=== PATIENT | male | born 1960 | race Caucasian/White ===

== ENCOUNTER 2017-12-17 10:28 | Emergency (ER) | payer MEDICARE, MEDICAID ==
[~2017-12-17] VITALS: Ht 190.5 cm; Wt 98.0 kg
[2017-12-17 10:30] VITALS: BP 131/74
[2017-12-17] MEDS ORDERED: AMOX500C2 PO (10:58)
== END 2017-12-17 11:19 | disposition home or self-care (01) ==
LOC: ER 10:29
DX: J02.9 Acute pharyngitis, unspecified (principal); Z88.8 Allergy status to other drugs, medicaments and biological substances
CPT/HCPCS: 87081; 87880; 99284

== ENCOUNTER 2024-09-20 15:58 | Emergency (ER) | payer MEDICARE, MEDICAID ==
[~2024-09-20] VITALS: Ht 190.5 cm; Wt 95.0 kg
[~2024-09-20 15:58] MED LIST: ALBU18HF2 PO; AMLO-708 PO; ATOR20TA66 PO; BUDE10.22 PO; FLO0.4C; FLUT1BLS24; LISI40TA13 PO; PANT40TA54 PO; TRAZ-251 PO; UMEC62.5 PO
[2024-09-20 16:53] LABS: BASOPHILS # (AUTO) 0.1 X10'3 (0-0.2); EOSINOPHILS # (AUTO) 0.3 X10'3 (0-0.9); EOSINOPHILS % (AUTO) 3.8 % (0-6); HEMATOCRIT 44.8 % (42.0-52.0); HEMOGLOBIN 15.1 g/dl (14.0-17.9); LYMPHOCYTES % (AUTO) 27.8 % (21-51); MEAN CORPUSCULAR HEMOGLOBIN 29.6 PG (27.0-31.0); MEAN CORPUSCULAR HGB CONC 33.7 g/dL (33.0-36.5); MEAN CORPUSCULAR VOLUME 87.7 FL (78-98); MEAN PLATELET VOLUME 8.8 FL (7.4-10.4); MONOCYTES # (AUTO) 0.8 X10'3 (0-0.9); MONOCYTES % (AUTO) 10.8 % (2-12); NEUTROPHILS # (AUTO) 4.1 X10'3 (1.8-7.7); NEUTROPHILS % (AUTO) 56.6 % (42-75); PLATELET COUNT 225 X10'3 (140-440); RED BLOOD COUNT 5.11 X10'6 (4.70-6.10); RED CELL DISTRIBUTION WIDTH 13.4 % (11.5-14.5); WHITE BLOOD COUNT 7.2 X10'3 (4.5-11.0)
[2024-09-20 17:06] LABS: ALANINE AMINOTRANSFERASE 34 U/L (12-78); ALBUMIN 3.9 G/DL (3.4-5.0); ALKALINE PHOSPHATASE 125 IU/L (46-116); ANION GAP 9 (8-16); ASPARTATE AMINO TRANSFERASE 21 U/L (10-37); BILIRUBIN,TOTAL 0.4 MG/DL (0.1-1.0); BLOOD UREA NITROGEN 16 MG/DL (7-18); CALCIUM 9.1 MG/DL (8.5-10.1); CHLORIDE 101 MMOL/L (99-107); GLUCOSE 105 MG/DL (70-104); POTASSIUM 4.1 MMOL/L (3.5-5.1); SODIUM 136 MMOL/L (135-145); TOTAL PROTEIN 7.9 G/DL (6.4-8.2); eCRCL 87 ML/MIN; eGFR 75 ML/MIN
[2024-09-20 17:14] LABS: PRO BRAIN NATRIURETIC PEPTIDE < 30 PG/ML (0-125)
[2024-09-20 19:08] VITALS: BP 146/77; PULSE 62; RESP 15; TEMP 98.3; O2SAT 97
== END 2024-09-20 19:10 | disposition home or self-care (01) ==
LOC: ER 15:58
DX: R07.89 Other chest pain (principal); R55 Syncope and collapse; Z88.8 Allergy status to other drugs, medicaments and biological substances
CPT/HCPCS: 36415; 71045; 80053; 83880; 84484; 85025; 93005; 99285

== ENCOUNTER 2025-07-28 20:01 | Emergency (ER) | payer MEDICARE, MEDICAID ==
[~2025-07-28] VITALS: Ht 188 cm; Wt 87.3 kg
[~2025-07-28 20:01] MED LIST changes: -FLO0.4C; -LISI40TA13 PO; +LISI40TA20 PO; +TAMS-55 PO
--- NOTE | 2025-07-28 20:42 | Physician Documentation ---
History of Present Illness ~ Chief Complaint: Wrist pain Stated Complaint: WRIST FRACTURE Time Seen by MD: 20:39 Primary Medical Doctor: KANG DALY [facility] This is a 65-year-old male who presents with left wrist pain and swelling following a mechanical ground level trip and fall, patient additionally reports an abrasion to the right wrist. Patient reports no numbness to fingers of left hand Tetanus within 5 years: Yes Medication Reconciliation Allergies: Coded Allergies: bupropion (Verified Allergy, Unknown, 02/19/24) Scheduled Amlodipine Besylate (Amlodipine Besylate), 1 TAB PO DAILY, (Reported) Atorvastatin Calcium (Atorvastatin Calcium), 1 TAB PO HS, (Reported) Fluticasone/Vilanterol (Fluticasone-Vilanterol 100-25), DAILY, (Reported) Ibuprofen (Ibuprofen), 1 TAB PO Q8H Lisinopril* (Lisinopril*), 1 TAB PO HS, (Reported) Pantoprazole Sodium (Pantoprazole Sodium), 1 TAB PO WL, (Reported) Tamsulosin Hcl* (Flomax*), DAILY, (Reported) Trazodone HCl (Trazodone HCl), 1-2 TAB PO HS, (Reported) Umeclidinium [place] (Incruse Ellipta), 1 PUFFS PO DAILY, (Reported) Scheduled PRN Albuterol Sulfate (Ventolin Hfa), 2 PUFFS PO Q2H PRN for SOB or wheezing, (Reported) Miscellaneous Medications Budesonide/Formoterol Fumarate (Symbicort 80-4.5 Mcg Inhaler), 2 PUFFS PO, (Reported) Past Medical History Past Medical History: No Pertinent History Past Surgical History: noncontributory Patient History: FH: cardiovascular disease GRANDFATHER OR GRANDMOTHER, Name: Great Grandfather FH: dementia MOTHER FH: heart attack FATHER Lives with: Spouse Lives In: Home Review of Systems ROS As stated above in the HPI, otherwise all systems are reviewed and negative. Physical Exam Vital Signs: Temperature: 98.3, Heart Rate: 72, Respiratory Rate: 16, BP: 135/80, Pulse Oximetry: 99, Weight: 87.320 Oxygen Flow Rate: 0 Physical Exam VITALS: Reviewed and as above. GENERAL: Alert, nontoxic appearing, no apparent distress. HEENT: No injuries to head or face RESPIRATORY: No increased work of breathing, no respiratory distress, speaking in full clear sentences MUSCULOSKELETAL: Left distal forearm swollen without significant deformity, range of motion of fingers distal to the injury intact, sensation intact, brisk capillary refill distal to injury, range of motion intact to elbow and shoulder, no tenderness to palpation to elbow or shoulder SKIN: Abrasion to right forearm, no ecchymosis to left forearm Progress Results/Orders Results/Orders Orders - SHEILA MAJORP Forearm,Incl.One Joint (07/28/25 21:29) Completed Orders - SHEILA MAJOR ETHNOARCHAEOLOGY PROFESSOR Hydrocodone/Apap 5/325mg Tab ([place]asper 5/32 (07/28/25 20:55) Ketorolac Trometh 15mg/Ml Vial (Toradol (07/28/25 20:57) Forearm,Incl.One Joint (07/28/25 21:29) Vital Signs 07/28/25 07/28/25 20:17 22:03 Temp 98.3 98.6 Pulse 72 69 Resp 16 18 B/P (MAP) 135/80 130/72 Pulse Ox 99 99 O2 Flow Rate 0 EKG/XRAY/CT/US/VASC/MRI Bone/Soft Tissue X-Ray (Ext.) #1: Additional Comment Exam: WRIST, COMPLETE (3VW MIN) CLINICAL INDICATION: WRIST PAIN TECHNIQUE: 3 radiographic views of the left wrist were obtained. Comparison: None FINDINGS/IMPRESSION: There is acute comminuted mildly displaced fracture of the distal radius with intra-articular extension. 2 mm linear density adjacent to the triquetrum on the oblique view which may represent a small avulsed bony fragment. There is associated soft tissue edema of the distal forearm and wrist. Electronically Signed by:ARMINDA WEISS DO Date & Time: 07/28/252046 Dictated by: ARMINDA WEISS DO Dictation date and time: 07/28/252046 I have reviewed and agree with the radiology report. I have reviewed and interpreted the imaging as: Comminuted fracture of the distal radius Bone/Soft Tissue X-Ray (Ext.) #2: Additional Comment Exam: FOREARM,INCL.ONE JOINT CLINICAL INDICATION: Post Reduction LEFT TECHNIQUE: DI FOREARM,INCL.ONE JOINT Comparison: DI WRIST, COMPLETE (3VW MIN) on DOS: 07/28/25 FINDINGS/IMPRESSION: : Interval placement of a splint about the left forearm Slightly impacted mildly displaced distal radius metaphysis fracture with intra- articular extension into the radiocarpal joint. Electronically Signed by:XI CARCAMO MD Date & Time: 07/28/252239 Dictated by: XI CARCAMO MD Dictation date and time: 07/28/252239 I have reviewed and agree with the radiology report. I have reviewed and interpreted the imaging as: No significant change from previous study Medical Decision Making Findings This 65-year-old male presented with left wrist pain falling a ground level trip and fall on outstretched hand, physical exam demonstrated significant swelling to the wrist and additional abrasion to the right forearm. An x-ray of the wrist was obtained which demonstrated a comminuted mildly displaced distal radius. It was reassuring the arm was neurovascularly intact. Due to comminuted nature of the fracture and the fact it was mildly displaced manual reduction was not attempted however the patient's arm was allowed to hang in traction for some time prior to splint placement to attempt some level of reduction. A splint was applied by orthopedic shoe fitter and re-evaluated following placement with the arm and hand neurovascularly intact following splint placement. Abrasion to right wrist was dressed by nursing staff. Patient was medicated for pain reporting adequate pain control, patient is to be discharged to follow up with orthopedist. Remainder of physical exam was benign with no other acute injuries found and no other injuries reported. Patient provided home care instructions, return to care precautions, and follow up instructions which he verbalized understanding of. General Diff Dx:Considerations: Include: Contusion, Fracture, Hematoma, Laceration, Neurovascular injury, Open fracture, Sprain Wrist Diff Dx:Considerations: Include: DJD, Rheumatoid, Septic, Ganglion Departure Disposition: 01 HOME / SELF CARE / HOMELESS Impression: Primary Impression: Left wrist fracture Qualified Codes: S62.102A - Fracture of unspecified carpal bone, left wrist, initial encounter for closed fracture Condition: Improved Discharge Instructions: Wrist Fracture Treated With Immobilization Additional Instructions: Please follow up with the orthopedist at the information provided in this paperwork. You may use the ibuprofen that has been prescribed, take this medication with food to avoid stomach upset, you may add Tylenol to this medication for breakthrough pain for you may return to the emergency department if you change your mind on wanting a narcotic based pain medication. Please follow up with your primary care provider in the next few days. Please return to the emergency department for any new or worsening concerning symptoms including but not limited to increasing pain or swelling to your arm, numbness or tingling in your fingers, or loss of use of your fingers. Referrals: NO PRIMARY CARE PROVIDER (PCP) ELIZ BAPTISTE MD Prescriptions Ibuprofen (Ibuprofen) 800 Mg Tablet 1 TAB PO Q8H for pain for 10 Days, #30 TAB 0 Refills Prov: SHEILA MAJOR 07/28/25 Education Educated: Patient Educated regarding: diagnosis, treatment, prognosis, need for follow up Signature Scribe Signature: No scribe Attestation: The note accurately reflects work and decisions made by me.PAULA Perkins 07/29/25 16:56 SHEILA MAJOR Jul 28, 2025 20:42
--- NOTE | 2025-07-28 20:49 | RADIOLOGY REPORT ---
CLINICAL INDICATION: WRIST PAIN TECHNIQUE: 3 radiographic views of the left wrist were obtained. Comparison: None FINDINGS/IMPRESSION: There is acute comminuted mildly displaced fracture of the distal radius with intra-articular extensi on. 2 mm linear density adjacent to the triquetrum on the oblique view which may represent a small a vulsed bony fragment. There is associated soft tissue edema of the distal forearm and wrist.
[2025-07-28] MEDS ORDERED: HYDROcodone/acetaminophen 5mg/325mg tablet PO ONE (20:55)
[2025-07-28] MEDS: ketorolac trometh 15mg/ml vial 15 MG/ML ML IM STA (21:02)
[2025-07-28] MEDS ORDERED: IBUP-1986 PO (21:27)
[2025-07-28 22:03] VITALS: BP 130/72; PULSE 69; RESP 18; TEMP 98.6; O2SAT 99
--- NOTE | 2025-07-28 22:42 | RADIOLOGY REPORT ---
CLINICAL INDICATION: Post Reduction LEFT TECHNIQUE: DI FOREARM,INCL.ONE JOINT Comparison: DI WRIST, COMPLETE (3VW MIN) on DOS: 07/28/25 FINDINGS/IMPRESSION: : Interval placement of a splint about the left forearm Slightly impacted mildly displaced distal radius metaphysis fracture with intra-articular extension i nto the radiocarpal joint.
[2025-08-04] MEDS ORDERED: FLUT1AER INH (15:39)
[2025-08-04] MEDS ORDERED: IBUP-1986 PO (15:39)
[2025-08-04] MEDS ORDERED: LISI30TA4 PO (16:48)
== END 2025-07-28 22:04 | disposition home or self-care (01) ==
LOC: ER 20:02
DX: S52.592A Other fractures of lower end of left radius, initial encounter for closed fracture (principal); Z88.8 Allergy status to other drugs, medicaments and biological substances; W19.XXXA Unspecified fall, initial encounter; Y93.89 Activity, other specified; Y92.89 Other specified places as the place of occurrence of the external cause; Y99.8 Other external cause status
CPT/HCPCS: 29125; 73090; 73110; 99284; A4565; A6449; J1885

== ENCOUNTER 2025-08-05 10:24 | Day surgery (SDC) | payer MEDICARE, MEDICAID ==
[2025-08-04 15:12] LABS: MEAN PLATELET VOLUME 8.2 FL (7.4-10.4); RED CELL DISTRIBUTION WIDTH 13.1 % (11.5-14.5)
--- NOTE | 2025-08-04 15:13 | ELECTROCARDIOGRAPH REPORT ---
[facility] Test Date: 2025-08-04 Test Time: 15:10:53 Pat Name: ELIZ WIN Department: [facility]-PRE-OP Patient ID: [facility]-[id number] Room: Gender: M Pharmacy Retail Support Specialist: : 1960 Requested By: ELIZ BAPTISTE Order Number: [id number] Reading MD: Dr. EZEKIEL Barrios Measurements Intervals [place] Rate: 64 P: 72 KS: 167 QRS: 57 QRSD: 75 T: 46 QT: 368 QTc: 380 Interpretive Statements Sinus rhythm Baseline wander in lead(s) V2 Electronically Signed On 08-04-2025 20:36:[address] EZEKIEL Barrios Please click the below link to view image of tracing.
[2025-08-04 15:29] LABS: CREATININE 1.20 MG/DL (0.60-1.10); TOTAL CARBON DIOXIDE 29.7 MMOL/L (24-32); eGFR 60 ML/MIN
[~2025-08-05] VITALS: Ht 190.5 cm; Wt 86.1 kg
[2025-08-05] VITALS (13 sets, daily range): BP systolic 121–145; BP diastolic 62–76; PULSE 63–83; RESP 8–16; TEMP 98.1; O2SAT 92–99
[2025-08-05] MEDS: ceFAZolin 2gm/dext,iso 50mL 50 ML IV ONE (05:30)
[~2025-08-05 10:24] MED LIST changes: -BUDE10.22 PO; +FLUT1AER INH; -FLUT1BLS24; +IBUP-1986 PO; +LISI30TA4 PO; -LISI40TA20 PO; +bacitracin 15gm ointment TP ONE; +vancomycin 1,000mg inj ONE
[2025-08-05] MEDS: ringers solution, lacted 1,000 ML IV SCH (11:20)
[2025-08-05] MEDS ORDERED: ringers solution, lacted 1,000 ML IV SCH (12:25)
[2025-08-05] MEDS ORDERED: ondansetron/PF 4mg/2ml inj IV PRN (12:25)
[2025-08-05] MEDS ORDERED: labetalol 20mg/4ml (5mg/ml) syringe IV PRN (12:25)
[2025-08-05] MEDS ORDERED: fentaNYL/PF 50MCG/1 ML 2ML syringe IV PRN ×2 (12:25)
[2025-08-05] MEDS ORDERED: hydrALAZINE 20mg/ml inj. IV PRN (12:25)
[2025-08-05] MEDS ORDERED: morphine 4 MG/ML inj SYRINge IV PRN (12:25)
--- NOTE | 2025-08-05 12:28 | ANESTHESIA RECORDS ---
Nerve Block Providers to CC CC: ELIZ BAPTISTE MD ~ Diagnosis: Nerve Block requested by: SAY SEGURA MD Neuraxial/Peripheral Nerve Block requested for Post-operative analgesia by Physician above DIAGNOSIS: Post-operative pain. (Body Area) Shoulder: [ ] Arm: [ ] Hand: [ ] Hip: [ ] Knee: [ ] Ankle: [ ] Foot: [ ] Leg: [ ] Abdomen: [ ] Other: [ ] Post-operative pain expected to be/is inadequately managed by oral or IV medicines. Regional anesthetic expected to facilitate rehabilitation and/or discharge from facility. Other:[ _] Procedure Performed: Axillary: Left Time out Done?: Yes Time of Time out: 12:50 Procedure Details: PROCEDURE DETAILS: Risks, benefits and alternatives explained Informed consent obtained, and patient wishes to proceed Conscious sedation with indicated monitors Patient positioned, pertinent anatomy defined, sterile technique used Needle used: [ ] 3 1/8 inch Stimuplex Ultra 22ga [x ] 4 inch Stimuplex Ultra 20ga [ ] 6 inch Stimuplex Ultra 20ga [ ] 6 inch, Quikbloc over the needle catheter set 20ga [ ] 4 inch Quikbloc over the needle catheter set 20ga [ ]Other: [ ] Loss of twitch @ [ 0.5 ]mA [x ] Single Injection [ ] Catheter Ultrasound Guidance Used: [ x] Yes [ ] No Attempts:[ ] Medicines injected: [ ]Clonidine Amt:[ ] [ ]Dexamethasone Amt:[ ] [x ]Ropivacaine Amt:[___0.5% 40 C.C ] [ ]Bupivacaine Amt:[ ] [ ]Lidocaine Amt:[ ] [ ]Exparel 1.33%:[ ] [ ]Epinephrine Amt[ ] [ ]Other: [ ] Intermittent aspiration during local anesthetic administration No symptoms of intraneural or intravenous injection Patient tolerated procedure well Comments Left Axilla is examined with Ultrasound and Axillary vessels,Brachial plexu bundles are identified. Needle is near the bundles,motor response elicited with stimulation. 30 c.c local mix is distributed. spread is noted. [place] brachialis muscle is examined with Ultrasound and Musculocutaneous nerve is identified. Needle is placed near the bumdle and positive muscle contractions noted. 10 c.c local infiltrated. Ultrasound images captured,documented. ROSHAN LOUIS MD Aug 05, 2025 12:28
[2025-08-05] MEDS ORDERED: ondansetron/PF 4mg/2ml inj ONE (12:33)
[2025-08-05] MEDS ORDERED: acetaminophen 1,000mg/100ml IV 100 ML IV ONE (12:33)
[2025-08-05] MEDS ORDERED: LIDOcaine 1%/PF 5ML 10 MG/ML VIAL ONE (12:33)
[2025-08-05] MEDS ORDERED: propofol inj 0 ML IV ONE (12:33)
[2025-08-05] MEDS ORDERED: fentaNYL/PF 50MCG/1 ML 2ML syringe ONE (12:33)
[2025-08-05] MEDS ORDERED: ROPIVAcaine 0.5% (5mg/ml) 30ml vial ONE ×2 (12:33)
[2025-08-05] MEDS ORDERED: dexamethasone sod phosphate 4mg/ml inj. ONE (12:33)
[2025-08-05] MEDS ORDERED: propofol inj 20 ML IV ONE (12:33)
[2025-08-05] MEDS ORDERED: ePHEDrine 50MG/ML INJ. ONE (13:04)
--- NOTE | 2025-08-05 15:43 | OPERATIVE REPORT ---
DATE OF SURGERY: 08/05/2025 DICTATING PHYSICIAN: Cliff Moralez MD PREOPERATIVE DIAGNOSIS: Left intraarticular distal radius fracture with some comminution. POSTOPERATIVE DIAGNOSIS: Left intraarticular distal radius fracture with some comminution. PROCEDURE: Open reduction and internal fixation with a volar plate, screws and pegs. SURGEON: Cliff Moralez MD CHEMICAL SUPERVISOR: No farm assistant. ANESTHESIOLOGIST: General anesthesia, Dr. Pugh. FINDINGS: The patient was found to have an intraarticular distal radius fracture with an unstable fracture pattern with some loss of volar inclination. DESCRIPTION OF PROCEDURE: The patient has opted for stabilization of this fracture with an open reduction and internal fixation using volar plating system. The patient understood the indications, risks, benefits, limitations, and potential complications of this procedure. I obtained informed consent and signed his extremity. He was given prophylactic antibiotics now before being taken to the operating room where he was given a general anesthetic. While on the OR table, he was prepped and draped in the usual sterile orthopedic fashion with a left upper arm tourniquet and surgical timeout was taken per protocol and the case was begun. Esmarch was used for exsanguination. The tourniquet was insufflated. Anterior radial incision was made from the wrist flexor crease extending approximately some 5 inches. Dissection was then carried down to visualize the flexor carpi radialis tendon. Dissection was then carried to the anterior compartment of the knee while mobilizing the flexor carpi radialis longus tendon ulnarly to visualize the distal radius. The pronator quadratus was released off the radial side and retracted ulnarly. The distal radius was visualized as well as the fracture. The fracture was reduced with the aid of fluoroscopic x-rays. Acceptable reduction was achieved with correction of the radial angle and reduction of the volar inclination to 0 degrees. Volar plate was now positioned in position confirming this with x-rays and distal pegs were placed into the distal row of the plate. This was used for 4 distal pegs. The plate was then used to reduce the fracture and improve the inclination approximately 10 degrees. The plate was now secured with locking screws proximally and then the second row of pegs were used for a number for added stability of the comminuted distal radius fragments. Acceptable alignment and reduction of fracture fragments was achieved in this fashion. The area was now copiously irrigated with antibiotic and antiseptic irrigation. Hemostasis was achieved throughout the case with electrocautery. Closure of the pronator quadratus was accomplished with 2-0 Vicryl getting good coverage of the plate. Meticulous care was used to protect all neurovascular structures. Closure of the subcuticular skin was accomplished with 3-0 Vicryl with interrupted and skin nicole were used for the skin closure. She was now sealed with Dermabond skin glue. Telfa dressing, 4 x 4s, sterile Sof-Rol dressing was applied. A volar splint of plaster was applied to keep the wrist in a neutral position and for postoperative pain management. Tourniquet had been released. Good distal pulses and capillary refill returned to all digits in the wrist and hand. The patient was now extubated and taken to the recovery room in stable condition. There were no apparent perioperative complications. Needle and sponge count was correct. Cliff Moralez MD TID: [id number] RECEIPT: [id number] BERT/NILSA
--- NOTE | 2025-08-06 10:16 | RADIOLOGY REPORT ---
C-ARM FLUOROSCOPY: PROCEDURE: left wrist orif FLUOROSCOPY TIME: 48.8 sec DAP: 1.90 mgy FINDINGS: Spot intraoperative C arm radiographs demonstrating left wrist orif. IMPRESSION: Please refer to surgical report for detailed findings.
== END 2025-08-05 17:24 | disposition home or self-care (01) ==
LOC: PAS 10:24
PROVIDERS: ATTEND Orthopaedic Surgery
DX: S52.572A Other intraarticular fracture of lower end of left radius, initial encounter for closed fracture (principal); G89.18 Other acute postprocedural pain; I10 Essential (primary) hypertension; E78.5 Hyperlipidemia, unspecified; J44.9 Chronic obstructive pulmonary disease, unspecified; F41.9 Anxiety disorder, unspecified; Z87.891 Personal history of nicotine dependence; Z79.899 Other long term (current) drug therapy; Z90.49 Acquired absence of other specified parts of digestive tract; Z90.89 Acquired absence of other organs; Z88.8 Allergy status to other drugs, medicaments and biological substances; X58.XXXA Exposure to other specified factors, initial encounter; Y93.89 Activity, other specified; Y92.89 Other specified places as the place of occurrence of the external cause; Y99.8 Other external cause status
CPT/HCPCS: 25609; 36415; 64415; 73100; 80053; 82948; 85025; 93005; A4215; A4565; A4618; A6258; A6402; A6449; A7000; C1713; J0131; J1100; J2405; J2704; J2795; J3010; J3373; J3490; J7030; J7120; Z7506; Z7508; Z7512; Z7610; 76000